=== PATIENT | female | born 1980 | race Caucasian/White ===

== ENCOUNTER → 2023-11-11 07:10 | Outpatient (REF) | payer OTHER, SELFPAY | LOC: RAD 07:10 | PROVIDERS: ATTENDING PHYSICIAN Nurse Practitioner Family | DX: R47.89 Other speech disturbances (principal) | CPT/HCPCS: 70450 ==

== ENCOUNTER → 2025-06-03 08:57 | Outpatient (REF) | payer OTHER, SELFPAY | LOC: WDC 08:57 | PROVIDERS: ATTENDING PHYSICIAN Obstetrics & Gynecology Gynecology; FAMILY PHYSICIAN Nurse Practitioner Adult Health | DX: Z12.31 Encounter for screening mammogram for malignant neoplasm of breast (principal) | CPT/HCPCS: 77063; 77067 ==